=== PATIENT | male | born 1950 | race Caucasian/White ===

== ENCOUNTER 2019-06-08 10:47 | Observation (INO) | payer MEDICARE, OTHER ==
[2019-06-08] MEDS ORDERED: DIGOXIN INJ 0.5 MG/2 ML AMPULE IV ONE (11:24)
[2019-06-08 11:30] LABS: ABSOLUTE BASOPHILS # (AUTO) 0.1 10^3/uL (0.0-0.2); ABSOLUTE EOSINOPHILS # (AUTO) 0.2 10^3/uL (0.0-0.6); ABSOLUTE LYMPHOCYTES (AUTO) 1.3 10^3/uL (0.5-4.7); ABSOLUTE MONOCYTES (AUTO) 0.6 10^3/uL (0.1-1.4); BASOPHILS % (AUTO) 0.8 % (0-2); EOSINOPHILS % (AUTO) 1.6 % (0-6); HEMATOCRIT 46.7 % (37.9-51.0); HEMOGLOBIN 15.8 g/dL (13.5-17.0); LYMPHOCYTES % (AUTO) 13.1 % (13-45); MEAN CORPUSCULAR HGB CONC 33.7 g/dL (32.0-36.0); MEAN CORPUSCULAR VOLUME 89 fl (80-97); MONOCYTES % (AUTO) 6.1 % (3-13); PLATELET COUNT 183 10^3/uL (150-450); RED BLOOD COUNT 5.24 10^6/uL (4.35-5.55); RED CELL DISTRIBUTION WIDTH 13.1 % (11.5-14.0); SEGMENTED NEUTROPHILS % (AUTO) 78.4 % (42-78); TOTAL CELLS COUNTED % (AUTO) 100 %; WHITE BLOOD COUNT 10.3 10^3/uL (4.0-10.5)
[2019-06-08 11:46] LABS: ALBUMIN 3.8 g/dL (3.5-5.0); ALKALINE PHOSPHATASE 73 U/L (38-126); ANION GAP 7 (5-19); ASPARTATE AMINO TRANSFERASE 33 U/L (17-59); BILIRUBIN,DIRECT 0.1 mg/dL (0.0-0.4); BILIRUBIN,TOTAL 1.4 mg/dL (0.2-1.3); BLOOD UREA NITROGEN 9 mg/dL (7-20); CARBON DIOXIDE 26 mmol/L (22-30); CHLORIDE 106 mmol/L (98-107); CREATINE KINASE 142 U/L (55-170); GLUCOSE 137 mg/dL (75-110); POTASSIUM 3.9 mmol/L (3.6-5.0); TOTAL PROTEIN 6.3 g/dL (6.3-8.2)
[2019-06-08 11:57] LABS: CREATINE KINASE MB 1.63 ng/mL (<4.55)
[2019-06-08 11:58] LABS: TROPONIN I < 0.012 ng/mL
[2019-06-08 12:05] LABS: APPEARANCE,URINE SLIGHTLY-CLOUDY; BILIRUBIN,URINE NEGATIVE (NEGATIVE); COLOR,URINE DARK YELLOW; GLUCOSE, URINE NEGATIVE (NEGATIVE); KETONES,URINE NEGATIVE (NEGATIVE); LEUKOCYTE ESTERASE,URINE NEGATIVE (NEGATIVE); NITRITE,URINE NEGATIVE (NEGATIVE); PROTEIN,URINE NEGATIVE (NEGATIVE); UROBILINOGEN,URINE NEGATIVE mg/dL (<2.0)
--- NOTE | 2019-06-08 12:20 | RADIOLOGY REPORT (SQ) ---
EXAM DESCRIPTION: CHEST SINGLE VIEW COMPLETED DATE/TIME: 06/08/2019 12:07 pm REASON FOR STUDY: Chest pain COMPARISON: 06/02/2016 EXAM PARAMETERS: NUMBER OF VIEWS: One view. TECHNIQUE: Single frontal radiographic view of the chest acquired. RADIATION DOSE: NA LIMITATIONS: None. FINDINGS: LUNGS AND PLEURA: No opacities, masses or pneumothorax. No pleural effusion. MEDIASTINUM AND HILAR STRUCTURES: No masses. Contour normal. HEART AND VASCULAR STRUCTURES: Cardiomegaly. No pulmonary edema. BONES: No acute findings. HARDWARE: None in the chest. OTHER: No other significant finding. IMPRESSION: Cardiomegaly without pulmonary edema. TECHNICAL DOCUMENTATION: JOB ID: [id number] [employer]- All Rights Reserved Reading location - IP/workstation name: [email or web address]
--- NOTE | 2019-06-08 13:44 | ER Document Report ---
Entered by LISA PALAFOX SCRIBE 06/08/19 1119 Acting as scribe for:JERRICA ORTEGA MD ED Cardiac - General Chief Complaint: Chest Pain Stated Complaint: LIGHTHEADED, CHEST PRESSURE Time Seen by Provider: 06/08/19 11:08 Primary Care Provider: THANG BOWDEN MD [NO LOCAL MD] - Follow up as needed Mode of Arrival: Ambulatory Information source: Patient Notes: Patient is a 69 year old male that presents to the emergency department today wi th complaints of chest pain which began at 0800 this morning with associated lightheadedness. Patient states that two days ago he was at cardiac rehab and he developed lightheadedness. He was sent home and told to call his doctor. Patient reports he was told to only take x1 metoprolol instead of his usual x2. Patient states that when his chest pain begins it lasts for around 5-10 min and then he stays pain free for 15-20 min before the pain begins again. Patient took 2 baby aspirin prior to arrival. Patient is taking both xarelto and plavix. The patient had 2 stents placed in March 2019. TRAVEL OUTSIDE OF THE [place] IN LAST 30 DAYS: No - Related Data Allergies/Adverse Reactions: Penicillins Allergy (Verified 06/08/19 10:47) Past Medical History - General Information source: Patient - Social History Smoking Status: Never Smoker Cigarette use (# per day): No Chew tobacco use (# tins/day): No Frequency of alcohol use: None Drug Abuse: None Lives with: Family Family History: Reviewed & Not Pertinent Patient has suicidal ideation: No Patient has homicidal ideation: No - Past Medical History Cardiac Medical History: Reports: Hx Atrial Fibrillation, Hx Coronary Artery Disease, Hx Hypercholesterolemia, Hx Hypertension Past Surgical History: Reports: Hx Cardiac Catheterization - with stents placed in March of 2019 Review of Systems - Review of Systems Constitutional: No symptoms reported EENT: No symptoms reported Cardiovascular: See HPI, Chest pain, Lightheaded Respiratory: No symptoms reported Gastrointestinal: No symptoms reported Genitourinary: No symptoms reported Male Genitourinary: No symptoms reported Musculoskeletal: No symptoms reported Skin: No symptoms reported Hematologic/Lymphatic: No symptoms reported Neurological/Psychological: No symptoms reported -: Yes All other systems reviewed and negative Physical Exam - Vital signs Vitals: Temp Pulse Resp BP Pulse Ox 98.3 F 106 H 20 124/65 96 06/08/19 10:58 06/08/19 10:58 06/08/19 10:58 06/08/19 10:58 06/08/19 10:58 - Notes Notes: Physical Exam: General: Alert, appears well. HEENT: Normocephalic. Atraumatic. PERRL. Extraocular movements intact. Oropharynx clear. Neck: Supple. Non-tender. Respiratory: No respiratory distress. Clear and equal breath sounds bilaterally. Cardiovascular: Irregularly irregular, tachycardic into 110-115. Abdominal: Normal Inspection. Non-tender. No distension. Normal Bowel Sounds. Back: No gross abnormalities. Extremities: Moves all four extremities. Upper extremities: Normal inspection. Normal ROM. Lower extremities: Trace edema bilaterally. Normal ROM. Neurological: Normal cognition. AAOx4. Normal speech. Psychological: Normal affect. Normal Mood. Skin: Warm. Dry. Normal color. Course - Re-evaluation Re-evalutation: 06/08/19 13:52 Patient reports he has not had any more chest pain. His heart rate has come down to around 100. His blood pressure has remained about 180 systolic. We will give him some Lopressor to lower his blood pressure and slow his heart rate a little more. - Vital Signs Vital signs: Temp Pulse Resp BP Pulse Ox 98.3 F 106 H 17 138/87 H 98 06/08/19 10:58 06/08/19 10:58 06/08/19 14:31 06/08/19 14:31 06/08/19 14:31 - Laboratory Result Diagrams: 06/08/19 11:10 06/08/19 11:10 Laboratory results interpreted by me: 06/08/19 06/08/19 06/08/19 11:10 11:10 11:35 Seg Neutrophils % 78.4 H Glucose 137 H Total Bilirubin 1.4 H Urine Blood SMALL H - Diagnostic Test Radiology reviewed: Image reviewed, Reports reviewed - Chest x-ray shows card iomegaly without pulmonary edema - EKG Interpretation by Me EKG shows normal: Marissa, Intervals, QRS Complexes, ST-T Waves Rate: Tachycardia - 128 Rhythm: A.Fib Marissa/QRS: RBBB - Consults Dr. Meza Time consulted: 15:42 Consulted provider: will come to ER Critical Care Note - Critical Care Note Total time excluding time spent on procedures (mins): 40 Discharge - Discharge Clinical Impression: Chronic atrial fibrillation with rapid ventricular response Chest pain Qualifiers: Chest pain type: unspecified Qualified Code(s): R07.9 - Chest pain, unspecified Hypertension Qualifiers: Hypertension type: essential hypertension Qualified Code(s): I10 - Essential (primary) hypertension Condition: Stable Disposition: ADMITTED INPATIENT Admitting Provider: Derrick (Hospitalist) Unit Admitted: IMCU Referrals: THANG BOWDEN MD [NO LOCAL MD] - Follow up as needed Scribe Attestation: 06/08/19 12:09 I personally performed the services described in the documentation, reviewed and edited the documentation which was dictated to the scribe in my presence, and it accurately records my words and actions. I personally performed the services described in the documentation, reviewed and edited the documentation which was dictated to the scribe in my presence, and it accurately records my words and actions.
[2019-06-08] MEDS ORDERED: METOPROLOL TARTRATE PF/INJ 5 MG/5 ML SDV IV ONE (13:52)
[2019-06-08 15:15] LABS: CREATINE KINASE MB 1.57 ng/mL (<4.55)
[2019-06-08 15:36] LABS: TROPONIN I < 0.012 ng/mL
[2019-06-08] MEDS ORDERED: MAG HYDROX/AL HYDROX/SIMETH SUSP 30 ML UDCUP PO PRN (17:12)
[2019-06-08] MEDS ORDERED: PROMETHAZINE HCL INJ 25 MG/1 ML VIAL IV PRN (17:12)
[2019-06-08] MEDS ORDERED: TEMAZEPAM 15 MG CAPSULE PO PRN (17:12)
[2019-06-08] MEDS ORDERED: ACETAMINOPHEN 325 MG TABLET PO PRN (17:12)
[2019-06-08] MEDS ORDERED: ALBUTEROL SULFATE HFA (90 MCG/PUFF) 200 PUFF/8.5 GM MDI IH PRN (17:41)
[2019-06-08] MEDS ORDERED: MAGNESIUM HYDROXIDE SUSP 30 ML UDCUP PO PRN (17:50)
[2019-06-08] MEDS ORDERED: TAMSULOSIN HCL 0.4 MG CAP.SR.24H PO SCH (18:00)
[2019-06-08] MEDS ORDERED: RIVAROXABAN 10 MG TABLET PO SCH (18:00)
[2019-06-08 22:00] LABS: CREATINE KINASE MB 1.26 ng/mL (<4.55); TROPONIN I < 0.012 ng/mL
[2019-06-08] MEDS ORDERED: DILTIAZEM HCL 120 MG CAP.SR.24H PO SCH (22:00)
[2019-06-08] MEDS ORDERED: ATORVASTATIN CALCIUM 40 MG TABLET PO SCH (22:00)
[2019-06-08] MEDS ORDERED: MONTELUKAST SODIUM 10 MG TABLET PO SCH (22:00)
--- NOTE | 2019-06-08 22:05 | PDOC H&P ---
History of Present Illness Admission Date/PCP: 06/08/19 16:28 NATALIE BOWDEN MD Patient complains of: Chest pain History of Present Illness: EDMOND BERRY is a 69 year old male with a history of recent coronary stent placement by Dr. Garcias at [facility]. The patient's reports that the patient had 2 stents. One in the left main. This was 85% stenosed. In fact had 2 angioplasty of 50% lesion in order to reach the 85% blockage. She states another artery trances possibly right coronary) was stenotic at 70% and a stent was placed here as well. The patient states that he was participating in cardiac rehab for the last 2 weeks. He began to have episodes of lightheadedness. When he finally reported this to Dr. Garcias's office his metoprolol dose was decreased by half (50 mg daily from 50 mg twice daily). This helps with some of the lightheadedness. From when he woke up this morning he noticed pressure and discomfort on both the right and left side of his chest but seemingly centered in the epigastrium. He does have a history of hiatal hernia. It was present with intermittent episodes from approximately 8:00 this morning until 1030. He was diaphoretic twice during this timeframe. The pain radiated down his left arm. He does have underlying atrial fibrillation and had rapid ventricular response that was corrected with intravenous digoxin. The patient has been off of his digoxin for several weeks. The first 2 troponins were less than 0.012 each. A third test is pending. Because of the symptomatology and recent stenting the patient will be admitted to observation status to finish the rule out protocol. I told him that I will be recommending an appointment with Dr. Garcias next week. Past Medical History Cardiac Medical History: Reports: Atrial Fibrillation, Coronary Artery Disease, Hyperlipidema, Hypertension Pulmonary Medical History: Reports: Sleep Apnea EENT Medical History: Reports: Nose - Seasonal allergies Denies: Cataracts, Ears Neurological Medical History: Denies: Ischemic CVA, Migraine, Multiple Sclerosis Endocrine Medical History: Reports: Diabetes Mellitus Type 2 - The patient states that he is considered "prediabetic" by his primary care Endocrine History Note: Hypothyroidism Renal/ Medical History: Denies: Chronic Kidney Disease, Nephrolithiasis Malignancy Medical History: Reports: None GI Medical History: Reports: Hiatal Hernia Musculoskeltal Medical History: Reports: Arthritis Denies: Fibromyalgia, Gout Skin Medical History: Denies: Eczema, Psoriasis Psychiatric Medical History: Denies: Bipolar Disorder, Depression, Substance Abuse, Tobacco Dependency Traumatic Medical History: Denies: Gunshot Wound, Pneumothorax Hematology: Denies: Anemia, Bleeding Tendencies Infectious Medical History: Reports: None Past Surgical History Past Surgical History: Reports: Cardiac Catheterization - with stents placed in March of 2019, Tonsillectomy, Other - Ruptured Achilles tendon Social History Information Source: Patient - Patient and spouse Lives with: Family Smoking Status: Never Smoker Frequency of Alcohol Use: Occasional Hx Recreational Drug Use: No Hx Prescription Drug Abuse: No - Advance Directive Resuscitation Status: Full Code Surrogate healthcare decision maker:: The patient's would be the dedicated decision maker. Family History Family History: Reviewed & Not Pertinent Parental Family History Reviewed: No - Patient is adopted Children Family History Reviewed: Yes - Son with AML Sibling(s) Family History Reviewed.: NA - Patient is adopted and does not know siblings Medication/Allergy Home Medications: Atorvastatin Calcium [Lipitor 40 mg Tablet] 40 mg PO QHS 06/08/19 Clopidogrel Bisulfate [Plavix 75 mg Tablet] 75 mg PO DAILY 06/08/19 Diltiazem HCl [Diltiazem 12Hr ER] 120 mg PO QPM 06/08/19 Finasteride [Proscar 5 mg Tablet] 5 mg PO DAILY 06/08/19 Levothyroxine Sodium 75 mcg PO Q6AM 06/08/19 Metoprolol Tartrate [Lopressor 50 mg Tablet] 50 mg PO DAILY 06/08/19 Montelukast Sodium [Singulair 10 mg Tablet] 10 mg PO DAILY 06/08/19 Rivaroxaban [Xarelto] 20 mg PO DAILY 06/08/19 Tamsulosin HCl [Flomax] 0.4 mg PO DAILY 06/08/19 Allergies/Adverse Reactions: Penicillins Allergy (Verified 06/08/19 10:47) Review of Systems Constitutional: PRESENT: as per HPI, fatigue, weight gain, weight loss Eyes: ABSENT: visual disturbances Ears: ABSENT: hearing changes Nose, Mouth, and Throat: ABSENT: headache(s), mouth pain, sore throat Cardiovascular: PRESENT: chest pain. ABSENT: edema, palpitations Respiratory: PRESENT: dyspnea. ABSENT: hemoptysis, sputum Gastrointestinal: ABSENT: abdominal pain, coffee ground emesis, constipation, diarrhea, dysphagia, nausea, vomiting Genitourinary: PRESENT: nocturia. ABSENT: hematuria Musculoskeletal: PRESENT: back pain. ABSENT: deformity Integumentary: PRESENT: diaphoresis. ABSENT: wounds Neurological: ABSENT: abnormal movements, abnormal speech, confusion, focal weakness, lack of coordination, syncope, tremor(s), vertigo Psychiatric: ABSENT: anxiety, depression Endocrine: ABSENT: cold intolerance, heat intolerance, polydipsia, polyphagia, polyuria Hematologic/Lymphatic: ABSENT: easy bleeding, easy bruising Allergic/Immunologic: ABSENT: seasonal rhinorrhea Physical Exam Vital Signs: Temp Pulse Resp BP Pulse Ox 98.3 F 106 H 18 165/98 H 98 06/08/19 10:58 06/08/19 10:58 06/08/19 17:00 06/08/19 16:31 06/08/19 17:00 Intake & Output 06/07/19 06/08/19 06/09/19 06:59 06:59 06:59 Weight 104 kg General appearance: PRESENT: no acute distress, cooperative, well-developed, other - Facial flushing Head exam: PRESENT: atraumatic, normocephalic Eye exam: PRESENT: conjunctival injection, EOMI. ABSENT: scleral icterus Ear exam: PRESENT: normal external ear exam. ABSENT: bleeding, drainage Mouth exam: PRESENT: dry mucosa, neck supple, tongue midline Teeth exam: ABSENT: poor dentation Neck exam: PRESENT: full ROM. ABSENT: carotid bruit, JVD, lymphadenopathy Respiratory exam: PRESENT: clear to auscultation анна, symmetrical, unlabored. ABSENT: accessory muscle use, rales, stridor, tachypnea, wheezes Cardiovascular exam: PRESENT: irregular rhythm. ABSENT: diastolic murmur, systolic murmur Pulses: PRESENT: normal radial pulses, normal dorsalis pedis pul GI/Abdominal exam: PRESENT: normal bowel sounds, soft. ABSENT: organolmegaly, tenderness Rectal exam: PRESENT: deferred Gentrourinary exam: ABSENT: indwelling catheter Extremities exam: ABSENT: calf tenderness, joint swelling, pedal edema Musculoskeletal exam: PRESENT: normal inspection. ABSENT: deformity Neurological exam: PRESENT: alert, awake, oriented to person, oriented to place, oriented to time, oriented to situation, CN II-XII grossly intact. ABSENT: abnormal gait Psychiatric exam: PRESENT: appropriate affect, normal mood. ABSENT: agitated, anxious Focused psych exam: ABSENT: catatonic, delusional, internal stimuli Skin exam: PRESENT: dry, warm. ABSENT: mottled, rash Results Laboratory Results: 06/08/19 11:10 06/08/19 11:10 06/08/19 06/08/19 06/08/19 11:10 11:10 11:35 WBC 10.3 RBC 5.24 Hgb 15.8 Hct 46.7 MCV 89 MCH 30.0 MCHC 33.7 RDW 13.1 Plt Count 183 Seg Neutrophils % 78.4 H Sodium 139.1 Potassium 3.9 Chloride 106 Carbon Dioxide 26 Anion Gap 7 BUN 9 Creatinine 0.78 Est GFR ( Amer) > 60 Glucose 137 H Calcium 9.0 Magnesium 2.0 Total Bilirubin 1.4 H AST 33 Alkaline Phosphatase 73 Total Protein 6.3 Albumin 3.8 Urine Color DARK YELLOW Urine Appearance SLIGHTLY-CLOUDY Urine pH 5.0 Ur Specific Eliot 1.020 Urine Protein NEGATIVE Urine Glucose (UA) NEGATIVE Urine Ketones NEGATIVE Urine Blood SMALL H Urine Nitrite NEGATIVE Ur Leukocyte Esterase NEGATIVE Urine WBC (Auto) 4 Urine RBC (Auto) 3 06/08/19 06/08/19 06/08/19 11:10 11:10 14:36 Creatine Kinase 142 122 CK-MB (CK-2) 1.63 Troponin I < 0.012 06/08/19 14:36 Creatine Kinase CK-MB (CK-2) 1.57 Troponin I < 0.012 Impressions: Chest X-Ray 06/08/19 11:23 IMPRESSION: Cardiomegaly without pulmonary edema. Assessment and Plan - Diagnosis (1) Chest pain Qualifiers: Chest pain type: precordial pain Qualified Code(s): R07.2 - Precordial pain Is this a current diagnosis for this admission?: Yes Plan: 06/08/2019-the patient recently underwent stenting including a stent in the left main coronary artery. His pain is epigastric as well as across the chest. It did radiate down to the left arm. He was diaphoretic intermittently and did experience relief with sublingual nitroglycerin. The first 2 troponins are undetectable. The EKG does not show marked change. He will be admitted and placed on telemetry. A third troponin has been ordered. Despite my anticipation of his third troponin being normal I did tell him that he will need to see Dr. Garcias next week. (2) Chronic atrial fibrillation with rapid ventricular response Is this a current diagnosis for this admission?: Yes Plan: 06/08/2019-the patient is normally on metoprolol and diltiazem. The addition of digoxin obtained good control. We are going to start digoxin 0.125 mg daily and continue his metoprolol and diltiazem. Another consideration would be the use of carvedilol. We will continue the patient's anticoagulation. (3) Hypertension Qualifiers: Hypertension type: essential hypertension Qualified Code(s): I10 - Essential (primary) hypertension Is this a current diagnosis for this admission?: Yes Plan: 06/08/2019-we will continue his current medication regimen. His blood pressure was slightly higher than desired and I may adjust his medications based on his readings. If he is going to see Dr. Garcias next week then he may hold off on making changes. (4) Coronary artery disease involving [place] coronary artery of [place] heart without angina pectoris Is this a current diagnosis for this admission?: Yes Plan: 06/08/2019-as noted above the patient just had 2 stents placed earlier this year. We will continue aspirin, Plavix and statin therapy. (5) Asthma Qualifiers: Asthma severity: unspecified severity Asthma persistence: intermittent Asthma complication type: uncomplicated Qualified Code(s): J45.20 - Mild intermittent asthma, uncomplicated Is this a current diagnosis for this admission?: Yes Plan: 06/08/2019-the patient does report asthma that appears seasonal. I have ordered an albuterol inhaler. This is what he would use at home. (6) Obstructive sleep apnea Is this a current diagnosis for this admission?: Yes Plan: 06/08/2019-the patient does use his CPAP. His reports that she will be able to go home and bring his own CPAP to the hospital before tonight. (7) Hypothyroidism Is this a current diagnosis for this admission?: Yes Plan: 06/08/2019-I will continue the patient's current levothyroxine dose. - Time Time Spent with patient: 35 or more minutes Medications reviewed and adjusted accordingly: Yes Anticipated discharge: Home Within: within 24 hours - Plan Summary Plan Summary: I do expect the third troponin to be negative. I anticipate discharged home tomorrow and follow-up with cardiology next week.
--- NOTE | 2019-06-08 22:08 | ADVANCED CARE ---
- Diagnosis (1) Chest pain Diagnosis Current: Yes (2) Chronic atrial fibrillation with rapid ventricular response Diagnosis Current: Yes (3) Hypertension Diagnosis Current: Yes (4) Coronary artery disease involving [place] coronary artery of [place] heart without angina pectoris Diagnosis Current: Yes (5) Asthma Diagnosis Current: Yes (6) Obstructive sleep apnea Diagnosis Current: Yes (7) Hypothyroidism Diagnosis Current: Yes Attendance: Discussion was had with the patient as well as his who was at the bedside. Resuscitation Status: Full Code Discussion: When I brought up subjective living will/healthcare proxy the patient's in fact has completed document but the patient has not. I pulled the blank document out of the admissions packet. I reviewed the document with the patient and his . I pointed out the ability to specify the decision maker even if it is the person who would follow under the legal progression. The patient stated that his would be primary and his son secondary. I then pointed out the area where you can be more specific about advanced healthcare decisions in the occurrence of a catastrophic illness. We did use the common examples of tracheostomy, long-term ventilator requirement, need for a feeding tube and long-term group home placement. The patient and his are going to review the form. Since she already has 1 I believe she is going to strongly encouraged the patient to complete his. Care Planning Goals: Discussion did focus around completing a healthcare proxy document as well as pointing out the importance of making these decisions ahead of time. Document(s) Completed: None Time Spent: 20 minutes
[2019-06-09] MEDS ORDERED: LEVOTHYROXINE SODIUM 0.075 MG TABLET PO SCH (06:00)
--- NOTE | 2019-06-09 07:33 | PDOC DISCHARGE SUMMARY ---
General - Admit/Disc Date/PCP Admission Date/Primary Care Provider: 06/08/19 16:28 NATALIE BOWDEN MD Discharge Date: 06/09/19 - Discharge Diagnosis (1) Chest pain Is this a current diagnosis for this admission?: Yes Summary: The patient presented with chest pain that was associated with diaphoresis. The pain was intermittent but did affect the right and left chest as well as the epigastrium and low sternum area. In addition it radiated down the left arm. The patient had a left main coronary artery and possibly right coronary artery stenting with Dr. Garcias in March. Serial troponins were all less than 0.012. The patient's pain resolved with sublingual nitroglycerin by the time he reached the emergency department. His chest discomfort certainly could have been relat ed to his atrial fibrillation with rapid ventricular response. He will be discharged home today. I asked him to follow-up with Dr. Garcias, his [employer], first thing next week. (2) Chronic atrial fibrillation with rapid ventricular response Is this a current diagnosis for this admission?: Yes Summary: The patient had been on diltiazem extended release 120 mg daily and metoprolol succinate 50 mg twice daily. The patient was experiencing some lightheadedness at cardiac rehab. Dr. Garcias's office instructed him to decrease the metoprolol to 50 mg once daily. This was fairly recently and the patient developed a rapid heart rate. Instead of increasing his metoprolol back to a total of 100 mg daily, which I felt would cause lightheadedness, I added digoxin 0.125 mg daily. This seems to be keeping his heart rate under 100. I will discharge him to home. I have asked him to avoid caffeine and any stimulants such as energy drinks. He will follow-up with Dr. Garcias next week. (3) Hypertension Is this a current diagnosis for this admission?: Yes Summary: His blood pressures were elevated in the emergency department. However this morning they are well controlled. I will discharge him on the medications outlined above. (4) Coronary artery disease involving [place] coronary artery of [place] heart without angina pectoris Is this a current diagnosis for this admission?: Yes Summary: Medication changes as above. The patient will continue with his aspirin, Plavix and Xarelto. (5) Asthma Is this a current diagnosis for this admission?: Yes Summary: The patient uses an albuterol inhaler as needed. He was not symptomatic for asthma but his albuterol inhaler was made available if needed. (6) Obstructive sleep apnea Is this a current diagnosis for this admission?: Yes Summary: The patient is compliant with his CPAP. His was nice enough to go back home and bring his CPAP back to the hospital. He did wear his CPAP last night. (7) Hypothyroidism Is this a current diagnosis for this admission?: Yes Summary: The patient is on levothyroxine 75 mcg daily. A TSH level has been ordered but is still pending. If depressed than his levothyroxine dose can be decreased accordingly. He should follow-up with his primary care provider as well. - Additional Information Resuscitation Status: Full Code Discharge Diet: Cardiac, Other (Comments) - Avoid caffeine or other stimulants such as energy drinks Discharge Activity: Activity As Tolerated Prescriptions: Digoxin [Lanoxin 0.125 mg Tablet] 0.125 mg PO DAILY 14 Days #14 tablet Atorvastatin Calcium [Lipitor 40 mg Tablet] 40 mg PO QHS 30 Days #30 tablet Home Medications: Atorvastatin Calcium [Lipitor 40 mg Tablet] 40 mg PO QHS 06/08/19 Clopidogrel Bisulfate [Plavix 75 mg Tablet] 75 mg PO DAILY 06/08/19 Diltiazem HCl [Diltiazem 12Hr ER] 120 mg PO QPM 06/08/19 Finasteride [Proscar 5 mg Tablet] 5 mg PO DAILY 06/08/19 Levothyroxine Sodium 75 mcg PO Q6AM 06/08/19 Metoprolol Tartrate [Lopressor 50 mg Tablet] 50 mg PO DAILY 06/08/19 Montelukast Sodium [Singulair 10 mg Tablet] 10 mg PO DAILY 06/08/19 Rivaroxaban [Xarelto] 20 mg PO DAILY 06/08/19 Tamsulosin HCl [Flomax] 0.4 mg PO DAILY 06/08/19 Albuterol Sulfate [Proair HFA Inhalation Aerosol 8.5 gm MDI] 2 puff IH Q4HP PRN hfa.aer.[id number] 06/09/19 Aspirin [Ecotrin 81 mg EC Tablet] 81 mg PO DAILY tabec 06/09/19 Atorvastatin Calcium [Lipitor 40 mg Tablet] 40 mg PO QHS 30 Days #30 tablet 06/09/19 Clopidogrel Bisulfate [Plavix 75 mg Tablet] 75 mg PO DAILY tablet 06/09/19 Digoxin [Lanoxin 0.125 mg Tablet] 0.125 mg PO DAILY 14 Days #14 tablet 06/09/19 Diltiazem HCl [Cardizem Cd 120 mg Capsule] 120 mg PO QHS cap.sr.24h 06/09/19 Finasteride [Proscar 5 mg Tablet] 5 mg PO DAILY tablet 06/09/19 Levothyroxine Sodium [Synthroid 0.075 mg Tablet] 0.075 mg PO Q6AM tablet 06/09/19 Metoprolol Succinate [Toprol Xl 50 mg Tab.sr] 50 mg PO DAILY tab.sr.24h 06/09/19 Montelukast Sodium [Singulair 10 mg Tablet] 10 mg PO QHS tablet 06/09/19 Rivaroxaban [Xarelto 10 mg Tablet] 20 mg PO WSUPPER tablet 06/09/19 Tamsulosin HCl [Flomax 0.4 mg Cap.sr] 0.4 mg PO PCSUPPER cap.sr.24h 06/09/19 History of Present Illness Patient complains of: Chest pain History of Present Illness: EDMOND BERRY is a 69 year old male with a history of recent coronary stent placement by Dr. Garcias at [facility]. The patient's reports that the patient had 2 stents. One in the left main. This was 85% stenosed. In fact had 2 angioplasty of 50% lesion in order to reach the 85% blockage. She states another artery trances possibly right coronary) was stenotic at 70% and a stent was placed here as well. The patient states that he was participating in cardiac rehab for the last 2 weeks. He began to have episodes of lightheadedness. When he finally reported this to Dr. Garcias's office his metoprolol dose was decreased by half (50 mg daily from 50 mg twice daily). This helps with some of the lightheadedness. From when he woke up this morning he noticed pressure and discomfort on both the right and left side of his chest but seemingly centered in the epigastrium. He does have a history of hiatal hernia. It was present with intermittent episodes from approximately 8:00 this morning until 1030. He was diaphoretic twice during this timeframe. The pain radiated down his left arm. He does have underlying atrial fibrillation and had rapid ventricular response that was corrected with intravenous digoxin. The patient has been off of his digoxin for several weeks. The first 2 troponins were less than 0.012 each. A third test is pending. Because of the symptomatology and recent stenting the patient will be admitted to observation status to finish the rule out protocol. I told him that I will be recommending an appointment with Dr. Garcias next week. Hospital Course Hospital Course: The patient had an unremarkable hospital course. His chest pain was relieved by the time he got to the emergency department. He is stable this morning. Discharge as outlined above. Physical Exam Vital Signs: Temp Pulse Resp BP Pulse Ox 97.4 F 97 20 108/76 99 06/09/19 04:57 06/09/19 04:57 06/09/19 04:57 06/09/19 04:57 06/09/19 04:57 Intake & Output 06/08/19 06/09/19 06/10/19 06:59 06:59 06:59 Intake Total 100 Balance 100 Weight 103.7 kg General appearance: PRESENT: no acute distress, cooperative, well-developed Head exam: PRESENT: atraumatic, normocephalic Eye exam: PRESENT: conjunctiva pink, EOMI. ABSENT: scleral icterus Ear exam: PRESENT: normal external ear exam. ABSENT: bleeding, drainage Mouth exam: PRESENT: moist, tongue midline Respiratory exam: PRESENT: clear to auscultation анна, symmetrical, unlabored. ABSENT: accessory muscle use, rales, rhonchi, tachypnea, wheezes Cardiovascular exam: PRESENT: irregular rhythm GI/Abdominal exam: PRESENT: normal bowel sounds, soft. ABSENT: distended, tenderness Rectal exam: PRESENT: deferred Gentrourinary exam: ABSENT: indwelling catheter Extremities exam: ABSENT: calf tenderness, joint swelling, pedal edema Musculoskeletal exam: PRESENT: ambulatory, normal inspection Neurological exam: PRESENT: alert, awake, oriented to person, oriented to place, oriented to time, oriented to situation Psychiatric exam: PRESENT: other - Somewhat anxious affect. ABSENT: agitated, anxious Focused psych exam: ABSENT: delusional, restlessness Skin exam: PRESENT: other - Still with some facial flushing Results Laboratory Results: 06/08/19 11:10 06/08/19 11:10 06/08/19 06/08/19 06/08/19 11:10 11:10 11:35 WBC 10.3 RBC 5.24 Hgb 15.8 Hct 46.7 MCV 89 MCH 30.0 MCHC 33.7 RDW 13.1 Plt Count 183 Seg Neutrophils % 78.4 H Sodium 139.1 Potassium 3.9 Chloride 106 Carbon Dioxide 26 Anion Gap 7 BUN 9 Creatinine 0.78 Est GFR ( Amer) > 60 Glucose 137 H Calcium 9.0 Magnesium 2.0 Total Bilirubin 1.4 H AST 33 Alkaline Phosphatase 73 Total Protein 6.3 Albumin 3.8 Urine Color DARK YELLOW Urine Appearance SLIGHTLY-CLOUDY Urine pH 5.0 Ur Specific [place] 1.020 Urine Protein NEGATIVE Urine Glucose (UA) NEGATIVE Urine Ketones NEGATIVE Urine Blood SMALL H Urine Nitrite NEGATIVE Ur Leukocyte Esterase NEGATIVE Urine WBC (Auto) 4 Urine RBC (Auto) 3 06/08/19 06/08/19 06/08/19 11:10 11:10 14:36 Creatine Kinase 142 122 CK-MB (CK-2) 1.63 Troponin I < 0.012 06/08/19 06/08/19 06/08/19 14:36 21:15 21:15 Creatine Kinase 103 CK-MB (CK-2) 1.57 1.26 Troponin I < 0.012 < 0.012 Impressions: Chest X-Ray 06/08/19 11:23 IMPRESSION: Cardiomegaly without pulmonary edema. Qualifiers - * PATIENT BEING DISCHARGED WITH ANY OF THE FOLLOWING DIAGNOSIS: No Acute Heart Failure - Is this a Heart Failure Patient?: No Plan Discharge Plan: Follow-up with Dr. Garcias as well as primary care provider Time Spent: Greater than 30 Minutes
[2019-06-09 09:27] VITALS: BP 143/99
[2019-06-09] MEDS ORDERED: FINASTERIDE 5 MG TABLET PO SCH (10:00)
[2019-06-09] MEDS ORDERED: DIGOXIN 0.125 MG TABLET PO SCH (10:00)
[2019-06-09] MEDS ORDERED: METOPROLOL SUCCINATE 50 MG TAB.SR.24H PO SCH (10:00)
[2019-06-09] MEDS ORDERED: ASPIRIN 81 MG TABLET, ENT COATED PO SCH (10:00)
[2019-06-09] MEDS ORDERED: CLOPIDOGREL BISULFATE 75 MG TABLET PO SCH (10:00)
--- NOTE | 2019-06-10 18:52 | EKG REPORT ---
SEVERITY:- ABNORMAL ECG - ATRIAL FIBRILLATION, V-RATE [id number] RIGHT BUNDLE BRANCH BLOCK : Confirmed by: Luz Cordova 10-Jun-2019 18:51:05
== END 2019-06-09 10:00 | disposition home or self-care (01) ==
LOC: ER 10:47 → INTOOBSV 16:28 → EH 16:28 → 3S 19:01
PROVIDERS: ADMIT Hospitalist; ATTEND Hospitalist
DX: R07.89 Other chest pain (principal); R61 Generalized hyperhidrosis; J45.20 Mild intermittent asthma, uncomplicated; I48.2 Chronic atrial fibrillation; I10 Essential (primary) hypertension; I25.10 Atherosclerotic heart disease of native coronary artery without angina pectoris; G47.33 Obstructive sleep apnea (adult) (pediatric); E03.9 Hypothyroidism, unspecified; R23.2 Flushing; R42 Dizziness and giddiness; R35.1 Nocturia; M54.9 Dorsalgia, unspecified; R06.00 Dyspnea, unspecified; R60.0 Localized edema; I45.10 Unspecified right bundle-branch block; R73.03 Prediabetes; Z79.899 Other long term (current) drug therapy; Z79.01 Long term (current) use of anticoagulants; Z79.82 Long term (current) use of aspirin; Z95.5 Presence of coronary angioplasty implant and graft; Z79.02 Long term (current) use of antithrombotics/antiplatelets
CPT/HCPCS: 93005; 99291; 96374; 96375; 36415 ×2; 82553; 82550; 83735; 84443; 85025; 80053; 81001; 84484; 71045; 93010; G0378 ×3; A9270 ×9; J1160; J3490 ×2